=== PATIENT | male | born 1965 | race Caucasian/White ===

== ENCOUNTER 2025-04-15 07:50 | Outpatient (CLI) | payer OTHER, SELFPAY | END 2025-04-15 07:51 | disposition home or self-care (01) | LOC: FRMREF 07:54 | PROVIDERS: Visit Provider Family Medicine | DX: E53.8 Deficiency of other specified B group vitamins (principal); Z87.19 Personal history of other diseases of the digestive system; Z13.6 Encounter for screening for cardiovascular disorders; Z00.00 Encounter for general adult medical examination without abnormal findings; Z12.5 Encounter for screening for malignant neoplasm of prostate | CPT/HCPCS: 80053; 80061; 82607; G0103 ==